=== PATIENT | female | born 1990 | race Caucasian/White ===

== ENCOUNTER 2017-05-10 18:38 | Emergency (ER) | payer SELFPAY ==
[~2017-05-10] VITALS: Ht 170.2 cm; Wt 78.0 kg
[~2017-05-10 18:38] MED LIST: AUGM875T PO; IBUP800T23 PO
[2017-05-10 18:40] VITALS: BP 127/70; PULSE 81; TEMP 98.7; O2SAT 99
--- NOTE | 2017-05-10 20:20 | PD ---
HPI Chief Complaint: Injury Time Seen by Provider: 20:16 Travel History International Travel<30 days: No Contact w/Intl Traveler<30days: No Traveled to known affect area: No History of Present Illness HPI 26-year-old [id number] white female presents to emergency department with complaints of right index finger pain. The patient states that she jammed her finger yesterday evening and now she has difficulty moving her finger due to pain. She denies any sensory changes. She states that she has difficulty moving her finger due to pain. No weakness. She denies any other injuries or medical complaints. Pain is moderate but can be severe with palpation and movement. PFSH Past Medical History Hx Anticoagulant Therapy: No Autoimmune Disease: Yes (MONONUCLEOSIS) Anxiety: Yes Depression: Yes Cardiovascular Problems: No Chemotherapy: No Cerebrovascular Accident: No Diabetes: No Patient Takes Glucophage: No Diminished Hearing: No Respiratory: No Immunizations Current: Yes Tetanus Vaccination: < 5 Years Influenza Vaccination: No ?: Unknown LMP: 05/03/17 : 3 Para: 1 Miscarriage: 2 Past Surgical History Abdominal Surgery: Yes (Appendectomy) Appendectomy: Yes Hysterectomy: No Social History Alcohol Use: Yes (OCCASSIONAL) Tobacco Use: Yes (1 PPD) Substance Use: Yes (MARIJUANA OCC) Allergies-Medications (Allergen,Severity, Reaction): Coded Allergies: Penicillin (Verified Allergy, Unknown, 05/10/17) Uncoded Allergies: ASPARTAME (Allergy, Severe, Anaphylaxis, 10/07/16) Reported Meds & Prescriptions Reported Meds & Active Scripts Active Diclofenac Sodium DR (Diclofenac Sodium) 75 Mg Tabdr 75 Mg PO BID Review of Systems Except as stated in HPI: all other systems reviewed are Neg Physical Exam Narrative GENERAL: This is a well-nourished, well-developed patient, in no apparent distress. SKIN: No rashes, ecchymoses or lesions. Warm and dry. HEAD: Atraumatic. Normocephalic. EYES: PERRL, EOMI, no discharge or injection. No scleral icterus. EARS: Clear NOSE: Nasal turbinates appear normal. THROAT: Mucosa pink and moist. Airway patent. NECK: Trachea midline. supple, moves head freely. LUNGS: Clear to auscultation. CV: Regular in rhythm. ABDOMEN: Soft nontender. EXT: No clubbing cyanosis or edema. Examination of the right hand reveals pain to the MCP of the index finger as well as the PIP. She has full extension but has limited flexion at the MCP. She has intact sensation with good Refill. No obvious deformity. Median/ulnar/radial nerves intact. Data Data Last Documented VS Vital Signs Date Time Temp Pulse Resp B/P Pulse Ox O2 Delivery O2 Flow Rate FiO2 05/10/17 18:40 98.7 81 127/70 99 Orders Finger ([id number]) (05/10/17 20:06) Ice/Cold Pack (05/10/17 20:06) Ibuprofen (Motrin) (05/10/17 20:30) MDM Medical Decision Making Medical Screen Exam Complete: Yes Emergency Medical Condition: Yes Medical Record Reviewed: Yes Interpretation(s) Right index finger: Negative for acute bony injury. No dislocation. Differential Diagnosis MDM: High Differential diagnoses: Fracture, sprain, strain, dislocation, contusion, neurovascular injury Narrative Course Patient's x-ray is negative. She's Phillip tape index to middle finger. This is finger sprain. Icepack applied. Motrin 800 mg by mouth. Diagnosis Primary Impression: Sprain of index finger Qualified Code: S63.650A - Sprain of metacarpophalangeal (MCP) joint of right index finger, initial encounter Patient Instructions: General Instructions Additional Instructions: Rest. Elevation. Ice for the next 2 days. Diclofenac. Follow-up with a medical doctor in one week. Med/Other Pt SpecificInfo: Prescription(s) given Scripts Diclofenac Sodium DR 75 Mg Tabdr75 Mg PO BID #20 TAB Prov:Rhys Jasso MD 05/10/17 Disposition: 01 DISCHARGE HOME Condition: Stable Isidro Lozano May 10, 2017 20:19
[2017-05-10] MEDS ORDERED: DICL75TA PO (20:21)
[2017-05-10] MEDS ORDERED: IBUPROFEN 800 MG TAB PO ONE (20:30)
--- NOTE | 2017-05-10 20:57 | RADRPT ---
EXAM DATE/TIME: 05/10/2017 20:23 [facility] COMPARISON: No previous studies available for comparison. INDICATIONS : Pain from hitting finger on wall. MEDICAL HISTORY : None. SURGICAL HISTORY : None. ENCOUNTER: Initial ACUITY: 1 day PAIN SCORE: 5/10 LOCATION: Right second digit. FINDINGS: 3 views right second digit. Bone alignment within normal limits. No evidence of fracture. CONCLUSION: No evidence of fracture. Slava Arcos MD on May 10, 2017 at 20:52 Board Certified Radiologist. This report was verified electronically.
== END 2017-05-10 20:56 | disposition home or self-care (01) ==
LOC: NEPD 18:38
DX: S63.610A Unspecified sprain of right index finger, initial encounter (principal); F17.210 Nicotine dependence, cigarettes, uncomplicated; X58.XXXA Exposure to other specified factors, initial encounter; Y93.9 Activity, unspecified; Y92.9 Unspecified place or not applicable; Y99.8 Other external cause status
CPT/HCPCS: 73140; 99283

== ENCOUNTER 2017-07-27 01:03 | Emergency (ER) | payer SELFPAY ==
[~2017-07-27 01:03] MED LIST changes: -AUGM875T PO; +DICL75TA PO; -IBUP800T23 PO
[2017-07-27 01:05] VITALS: BP 138/93; PULSE 120; RESP 25; TEMP 98.7; O2SAT 99
[2017-07-27 01:17] VITALS: PULSE 95; RESP 18; O2SAT 99
[2017-07-27] MEDS ORDERED: AUGM875T3 PO (01:38)
[2017-07-27] MEDS ORDERED: AMOXICILLIN/CLAVULANATE K 875 MG TAB PO ONE (01:45)
--- NOTE | 2017-07-27 01:45 | PD ---
HPI Chief Complaint: Laceration/Skin Injury Time Seen by Provider: 01:31 Travel History International Travel<30 days: No Contact w/Intl Traveler<30days: No Traveled to known affect area: No History of Present Illness HPI 26-year-old white female presents to emergency department for evaluation of a cat bite. She states that the family pet scratched her in the mouth prior to arrival. She states that she had clots to her upper and lower lip. She states the cat is not up-to-date with shots. She is up-to-date. Patient denies any fever or chills. No other injuries. PFSH Past Medical History Hx Anticoagulant Therapy: No Autoimmune Disease: Yes (MONONUCLEOSIS) Anxiety: Yes Depression: Yes Cardiovascular Problems: No Chemotherapy: No Cerebrovascular Accident: No Diabetes: No Diminished Hearing: No Respiratory: No Immunizations Current: Yes Tetanus Vaccination: < 5 Years ?: Not : 3 Para: 1 Miscarriage: 2 Past Surgical History Abdominal Surgery: Yes (Appendectomy) Appendectomy: Yes Hysterectomy: No Social History Alcohol Use: Yes (OCCASSIONAL) Tobacco Use: Yes (1 PPD) Substance Use: Yes (MARIJUANA OCC) Allergies-Medications (Allergen,Severity, Reaction): Coded Allergies: penicillin G (Unverified Allergy, Unknown, 07/27/17) Uncoded Allergies: ASPARTAME (Allergy, Severe, Anaphylaxis, 10/07/16) Reported Meds & Prescriptions Reported Meds & Active Scripts Active Diclofenac Sodium DR (Diclofenac Sodium) 75 Mg Tabdr 75 Mg PO BID Review of Systems Except as stated in HPI: all other systems reviewed are Neg Physical Exam Narrative GENERAL: Well-developed, well-nourished in no acute distress. Nontoxic appearing. HEAD: Normocephalic, patient has a puncture site to the right upper lip as well as a lower lip. This is through the dry vermilion. No signs of infection at this time. No erythema or warmth. No drainage. Tender to touch. There are no through and through punctures. EYES: Pupils equal round and reactive. Extraocular motions intact. No scleral icterus. No injection or drainage. ENT: TMs clear without erythema. The external auditory canals clear. Nose: clear . Posterior pharynx is pink and moist. No tonsillar edema or exudate. Uvula midline. Airway patent. NECK: Trachea midline.Supple, nontender, moves head freely. No central bony tenderness or spasm. CARDIOVASCULAR: Regular rate and rhythm without murmurs, gallops, or rubs. RESPIRATORY: Clear to auscultation. Breath sounds equal bilaterally. No wheezes , rales, or rhonchi. GASTROINTESTINAL: Abdomen soft, non-tender, nondistended. No hepato-splenomegaly , or palpable masses. No guarding. EXTREMITIES: No clubbing, cyanosis, or edema. No joint tenderness, effusion, or edema noted. BACK: Nontender without deformity or crepitance. No flank tenderness. Data Data Last Documented VS Vital Signs Date Time Temp Pulse Resp B/P (MAP) Pulse Ox O2 Delivery O2 Flow Rate FiO2 07/27/17 01:17 95 18 99 Room Air 07/27/17 01:05 98.7 Orders Orders Amoxicil-Clavulanate (Augmentin) (07/27/17 01:45) [facility] Medical Decision Making Medical Screen Exam Complete: Yes Emergency Medical Condition: Yes Medical Record Reviewed: Yes Differential Diagnosis Differential diagnoses: Cat bite, cat scratch, wound infection Narrative Course Patient has 2 puncture wounds to the upper and lower lips. These are cleansed by the nursing staff. Patient's given Augmentin 875 by mouth. She'll be discharged on Augmentin. I explained to the patient that no other intervention is indicated. I feel that any attempt to close one of these punctures with a single stitch would only worsen and increase her risk for infection. She has been instructed to perform wound care and apply sunscreen and Rivera after the wound heals to minimize scarring. Patient verbally states understanding and agrees with treatment plan of follow-up. Diagnosis Primary Impression: Cat scratch of face Qualified Codes: S00.81XA - Abrasion of other part of head, initial encounter ; W55.03XA - Scratched by cat, initial encounter Patient Instructions: General Instructions Additional Instructions: Rest. Elevation. Ice pack tonight and then heat tomorrow. Tylenol and Advil for pain. Daily wound care with soap, water, Neosporin. Augmentin. Recheck with your doctor in 2-3 days. Return to the ER if any problems Med/Other Pt SpecificInfo: Prescription(s) given Scripts Amoxicillin-Clavulanate (Augmentin) 875-125 Mg Tab 1 TAB PO BID for Infection for 5 Days, TAB 0 Refills Prov: Laura Sampson MD 07/27/17 Disposition: 01 DISCHARGE HOME Condition: Stable Isidro Lozano Jul 27, 2017 01:44
== END 2017-07-27 01:59 | disposition home or self-care (01) ==
LOC: NEPD 01:03
DX: S00.81XA Abrasion of other part of head, initial encounter (principal); W55.03XA Scratched by cat, initial encounter
CPT/HCPCS: 99283

== ENCOUNTER 2018-01-16 23:39 | Emergency (ER) | payer SELFPAY ==
[~2018-01-16] VITALS: Ht 165.1 cm; Wt 72.0 kg
[2018-01-16 23:39] VITALS: BP 145/70; PULSE 87; RESP 22; TEMP 97.9; O2SAT 100
[~2018-01-16 23:39] MED LIST changes: +AUGM875T3 PO
[2018-01-17] MEDS ORDERED: SODIUM CHLOR 0.9% 1000 ML INJ 1,000 ML IV SCH (00:14)
[2018-01-17] MEDS ORDERED: SODIUM CHLOR 0.9% 1000 ML INJ 1,000 ML IV ONE (00:15)
[2018-01-17] MEDS ORDERED: PROMETHAZINE INJ 25 MG/ML VIAL IM ONE (00:15)
[2018-01-17] MEDS ORDERED: SODIUM CHLORIDE 0.9% FLUSH 10 ML FLUSH IV FLUSH PRN (00:15)
[2018-01-17 00:31] VITALS: O2SAT 97
[2018-01-17 00:35] LABS: AUTOMATED NEUTROPHIL # 8.3 TH/MM3 (1.8-7.7); BASOPHIL # 0.1 TH/MM3 (0-0.2); BASOPHIL % 0.5 % (0.0-2.0); EOSINOPHIL # 0.2 TH/MM3 (0-0.4); EOSINOPHIL % 1.6 % (0.0-4.0); HEMATOCRIT 38.6 % (35.0-46.0); HEMOGLOBIN 13.9 GM/DL (11.6-15.3); LYMPH % 13.6 % (9.0-44.0); LYMPHOCYTE # 1.5 TH/MM3 (1.0-4.8); MEAN CELL VOLUME 87.9 FL (80.0-100.0); MEAN CORPUSCULAR HEMOGLOBIN 31.6 PG (27.0-34.0); MEAN PLATELET VOLUME 8.9 FL (7.0-11.0); MONO % 6.8 % (0.0-8.0); MONOCYTE # 0.7 TH/MM3 (0-0.9); NEUT % 77.5 % (16.0-70.0); PLATELET COUNT 274 TH/MM3 (150-450); RED BLOOD COUNT 4.39 MIL/MM3 (4.00-5.30); RED CELL DISTRIBUTION WIDTH 12.5 % (11.6-17.2); WHITE BLOOD COUNT 10.7 TH/MM3 (4.0-11.0)
[2018-01-17 01:02] LABS: ALBUMIN 3.8 GM/DL (3.4-5.0); ALT (GPT) 17 U/L (10-53); AST (GOT) 14 U/L (15-37); BLOOD UREA NITROGEN 16 MG/DL (7-18); CALCIUM 8.7 MG/DL (8.5-10.1); CHLORIDE 108 MEQ/L (98-107); CREATININE 0.88 MG/DL (0.50-1.00); GLOMERULAR FILTRATION RATE 77 ML/MIN (>89); GLUCOSE,RANDOM 122 MG/DL (74-106); SODIUM (NA) 141 MEQ/L (136-145)
[2018-01-17 01:04] LABS: ALKALINE PHOSPHATASE 66 U/L (45-117); TOTAL BILIRUBIN ADULT 0.4 MG/DL (0.2-1.0); TOTAL PROTEIN 7.5 GM/DL (6.4-8.2)
[2018-01-17] MEDS ORDERED: PROM1SUP7 RECTAL (02:37)
[2018-01-17] MEDS ORDERED: PROM25TA10 PO (02:37)
[2018-01-17] MEDS ORDERED: POTA10TA2 PO (02:38)
--- NOTE | 2018-01-17 02:38 | PD ---
HPI Chief Complaint: GI Complaint Time Seen by Provider: 23:56 Travel History International Travel<30 days: No Contact w/Intl Traveler<30days: No Traveled to known affect area: No History of Present Illness HPI 19-year-old female reports nausea vomiting and abdominal pain for the past day and a half. No fever. Appetite decreased. She reports visiting outside hospital where workup was unremarkable and IV fluids and a prescription for Zofran were provided. Patient unable to fill Zofran prescription due to cost. No abnormal discharge or bleeding PFSH Past Medical History Hx Anticoagulant Therapy: No Autoimmune Disease: Yes (MONONUCLEOSIS) Anxiety: Yes Depression: Yes Cardiovascular Problems: No Chemotherapy: No Cerebrovascular Accident: No Diabetes: No Diminished Hearing: No Respiratory: No Immunizations Current: Yes Tetanus Vaccination: < 5 Years Influenza Vaccination: No ?: Unknown : 3 Para: 1 Miscarriage: 2 Past Surgical History Abdominal Surgery: Yes (Appendectomy) Appendectomy: Yes Hysterectomy: No Social History Alcohol Use: Yes (OCCASSIONAL) Tobacco Use: Yes (1 PPD) Substance Use: Yes (MARIJUANA OCC) Allergies-Medications (Allergen,Severity, Reaction): Coded Allergies: penicillin G (Unverified Allergy, Unknown, 01/16/18) Uncoded Allergies: ASPARTAME (Allergy, Severe, Anaphylaxis, 10/07/16) Reported Meds & Prescriptions Reported Meds & Active Scripts Active Potassium Chloride ER (Potassium Chloride) 10 Meq Tab 10 Meq PO BID Phenergan Supp (Promethazine HCl) 25 Mg Supp 25 Mg RECTAL Q6H PRN Phenergan (Promethazine HCl) 25 Mg Tablet 25 Mg PO Q6H PRN Augmentin (Amoxicillin-Clavulanate) 875-125 Mg Tab 1 Tab PO BID [address] (Diclofenac Sodium) 75 Mg Tabdr 75 Mg PO BID Review of Systems Except as stated in HPI: all other systems reviewed are Neg Physical Exam Narrative GENERAL: 19-year-old female pleasant well-nourished well-developed moderate distress secondary to nausea vomiting Vital Signs Date Time Temp Pulse Resp B/P (MAP) Pulse Ox O2 Delivery O2 Flow Rate FiO2 01/17/18 02:55 01/17/18 02:55 73 16 119/79 (92) 98 Room Air 01/17/18 00:31 97 Room Air 01/17/18 00:30 16 01/16/18 23:39 97.9 87 22 145/70 (95) 100 SKIN: Warm and dry. HEAD: Atraumatic. Normocephalic. EYES: Pupils equal and round. No scleral icterus. No injection or drainage. ENT: No nasal bleeding or discharge. Mucous membranes pink and moist. NECK: Trachea midline. No JVD. CARDIOVASCULAR: Regular rate and rhythm. RESPIRATORY: No accessory muscle use. Clear to auscultation. Breath sounds equal bilaterally. GASTROINTESTINAL: Abdomen soft, non-tender, nondistended. Hepatic and splenic margins not palpable. MUSCULOSKELETAL: Extremities without clubbing, cyanosis, or edema. No obvious deformities. NEUROLOGICAL: Awake and alert. No obvious cranial nerve deficits. Motor grossly within normal limits. Five out of 5 muscle strength in the arms and legs. Normal speech. PSYCHIATRIC: Appropriate mood and affect; insight and judgment normal. Data Data Last Documented VS Vital Signs Date Time Temp Pulse Resp B/P (MAP) Pulse Ox O2 Delivery O2 Flow Rate FiO2 01/17/18 02:55 01/17/18 02:55 73 16 98 Room Air 01/16/18 23:39 97.9 Orders Orders Complete Blood Count With Diff (01/17/18 00:14) Comprehensive Metabolic Panel (01/17/18 00:14) Iv Access Insert/Monitor (01/17/18 00:14) Ecg Monitoring (01/17/18 00:14) Oximetry (01/17/18 00:14) Sodium Chlor 0.9% 1000 Ml Inj (Ns 1000 M (01/17/18 00:14) Sodium Chloride 0.9% Flush (Ns Flush) (01/17/18 00:15) Ed Urine Pregnancytest Poc (01/17/18 00:14) Sodium Chlor 0.9% 1000 Ml Inj (Ns 1000 M (01/17/18 00:15) Promethazine Inj (Phenergan Inj) (01/17/18 00:15) Potassium Chloride (Kcl) (01/17/18 02:45) Ed Discharge Order (01/17/18 02:39) Ondansetron Inj (Zofran Inj) (01/17/18 02:45) Labs Laboratory Tests Test 01/17/18 00:27 White Blood Count 10.7 TH/MM3 Red Blood Count 4.39 MIL/MM3 Hemoglobin 13.9 GM/DL Hematocrit 38.6 % Mean Corpuscular Volume 87.9 FL Mean Corpuscular Hemoglobin 31.6 PG Mean Corpuscular Hemoglobin Concent 36.0 % Red Cell Distribution Width 12.5 % Platelet Count 274 TH/MM3 Mean Platelet Volume 8.9 FL Neutrophils (%) (Auto) 77.5 % Lymphocytes (%) (Auto) 13.6 % Monocytes (%) (Auto) 6.8 % Eosinophils (%) (Auto) 1.6 % Basophils (%) (Auto) 0.5 % Neutrophils # (Auto) 8.3 TH/MM3 Lymphocytes # (Auto) 1.5 TH/MM3 Monocytes # (Auto) 0.7 TH/MM3 Eosinophils # (Auto) 0.2 TH/MM3 Basophils # (Auto) 0.1 TH/MM3 CBC Comment AUTO DIFF Differential Comment AUTO DIFF CONFIRMED Platelet Estimate NORMAL Platelet Morphology Comment NORMAL Red Cell Morphology Comment NORMAL Blood Urea Nitrogen 16 MG/DL Creatinine 0.88 MG/DL Random Glucose 122 MG/DL Total Protein 7.5 GM/DL Albumin 3.8 GM/DL Calcium Level 8.7 MG/DL Alkaline Phosphatase 66 U/L Aspartate Amino Transf (AST/SGOT) 14 U/L Alanine Aminotransferase (ALT/SGPT) 17 U/L Total Bilirubin 0.4 MG/DL Sodium Level 141 MEQ/L Potassium Level 3.0 MEQ/L Chloride Level 108 MEQ/L Carbon Dioxide Level 24.0 MEQ/L Anion Gap 9 MEQ/L Estimat Glomerular Filtration Rate 77 ML/MIN [facility] Medical Decision Making Medical Screen Exam Complete: Yes Emergency Medical Condition: Yes Medical Record Reviewed: Yes Differential Diagnosis Constipation, Gastritis, Acute Cholecystitis, Biliary Colic, Pancreatitis, ALEXANDRE , Hepatitis, Bowel Obstruction, Cystitis, Mesenteric Ischemia, AAA, Appendicitis , Renal Stone/Hydronephrosis, GERD, perforated viscous Narrative Course CBC & BMP Diagram 01/17/18 00:27 Total Protein 7.5, Albumin 3.8, Calcium Level 8.7, Alkaline Phosphatase 66, Aspartate Amino Transf (AST/SGOT) 14 L, Alanine Aminotransferase (ALT/SGPT) 17, Total Bilirubin 0.4 Potassium replenished. Patient received IV fluids antiemetics. We discussed at home potassium replenishment patient was readily amenable to the discussion. Return precautions discussed. Diagnosis Primary Impression: Nausea & vomiting Qualified Codes: R11.2 - Nausea with vomiting, unspecified Additional Impression: Hypokalemia Referrals: Primary Care Physician 2 days Med/Other Pt SpecificInfo: Prescription(s) given Scripts Potassium Chloride ER (Potassium Chloride ER) 10 Meq Tab 10 MEQ PO BID for Electrolyte Replacement, #15 TAB 0 Refills Prov: Judd Carcamo MD 01/17/18 Promethazine Supp (Phenergan Supp) 25 Mg Supp 25 MG RECTAL Q6H Y for NAUSEA OR VOMITING, #10 SUPP 0 Refills Prov: Judd Carcamo MD 01/17/18 Promethazine (Phenergan) 25 Mg Tablet 25 MG PO Q6H Y for NAUSEA OR VOMITING, #10 TAB 0 Refills Prov: Judd Carcamo MD 01/17/18 Disposition: 01 DISCHARGE HOME Condition: Stable Judd Carcamo MD Jan 17, 2018 02:38
[2018-01-17] MEDS ORDERED: POTASSIUM CHLORIDE 20 MEQ CONTROLLED RELEASE TAB PO ONE (02:45)
[2018-01-17] MEDS ORDERED: ONDANSETRON HCL 4 MG/2 ML VIAL IV PUSH ONE (02:45)
[2018-01-17 02:55] VITALS: BP 119/79; PULSE 73; RESP 16; O2SAT 98
== END 2018-01-17 02:58 | disposition home or self-care (01) ==
LOC: NEPE 23:39
DX: R11.2 Nausea with vomiting, unspecified (principal); E87.6 Hypokalemia; R10.9 Unspecified abdominal pain; F17.200 Nicotine dependence, unspecified, uncomplicated; F12.90 Cannabis use, unspecified, uncomplicated
CPT/HCPCS: 80053; 84703; 85025; 96372; 96374; 99284; J2405; J2550; J7030